=== PATIENT | female | born 1995 | race African-American/Black ===

== ENCOUNTER 2016-12-23 11:33 | Inpatient (IN) | payer OTHER, MEDICAID ==
[~2016-12-23] VITALS: Ht 162.6 cm; Wt 77.5 kg
--- NOTE | 2016-12-23 11:48 | PD ---
HPI Chief Complaint: Psychiatric Symptoms Time Seen by Provider: 11:40 Travel History International Travel<30 days: No Contact w/Intl Traveler<30days: No History of Present Illness HPI 21-year-old Afro-Guyanese female presents the emergency department under police escort after being Bliss acted for attempted suicide. Patient reports she had a friend's gun and she pointed at her head and pulled the trigger at approximately 1 AM this morning. She states the gun jammed. Patient continues to feel suicidal. She denies any medical issues or medications. She denies alcohol or drug use. Last menstrual period was the 14th of last month. Patient has no known drug allergies. PFSH Social History Alcohol Use: No Tobacco Use: No Substance Use: No Review of Systems Except as stated in HPI: all other systems reviewed are Neg General / Constitutional: No: Fever Eyes: No: Visual changes HENT: No: Headaches Cardiovascular: No: Chest Pain or Discomfort Respiratory: No: Shortness of Breath Gastrointestinal: No: Abdominal Pain Genitourinary: No: Dysuria Musculoskeletal: No: Pain Skin: No Rash Neurologic: No: Weakness Psychiatric: Positive: Depression, Suicidal Ideations, No: Anxiety, Disorder of Thought, Mood Disorder, Substance Abuse, Homicidal Ideation Endocrine: No: Polydipsia Hematologic/Lymphatic: No: Easy Bruising Physical Exam Narrative GENERAL: Patient appears in no acute distress. SKIN: Warm and dry. Normal color. Normal turgor. No signs of trauma. HEAD: Atraumatic. Normocephalic. EYES: Pupils equal and round. No scleral icterus. No injection or drainage. ENT: No nasal bleeding or discharge. Mucous membranes pink and moist. Pharynx is clear. Airway is patent NECK: Trachea midline. Supple nontender. CARDIOVASCULAR: Regular rate and rhythm. RESPIRATORY: No accessory muscle use. Clear to auscultation. Breath sounds equal bilaterally. MUSCULOSKELETAL: Extremities without clubbing, cyanosis, or edema. No obvious deformities. NEUROLOGICAL: Awake and alert. No obvious cranial nerve deficits. Motor grossly within normal limits. Five out of 5 muscle strength in the arms and legs. Normal speech. PSYCHIATRIC: Appropriate mood and affect; insight and judgment normal. MDM Medical Decision Making Medical Screen Exam Complete: Yes Emergency Medical Condition: Yes Differential Diagnosis With suicidal attempt. Suicidal ideation. Bliss act. Narrative Course Psychiatric labs ordered per protocol. Urinalysis and urine is ordered. Patient is medically cleared for psychiatric evaluation. Diagnosis Primary Impression: Depression with suicidal ideation Additional Impression: Medical clearance for psychiatric admission Condition: Stable Toby Wilson Dec 23, 2016 11:48
[2016-12-23 12:00] VITALS: BP 122/77; PULSE 75; RESP 20; TEMP 98.2; O2SAT 99
[2016-12-23 12:10] LABS: AUTOMATED NEUTROPHIL # 2.7 TH/MM3 (1.8-7.7); BASOPHIL % 0.4 % (0.0-2.0); EOSINOPHIL % 0.4 % (0.0-4.0); HEMATOCRIT 39.8 % (35.0-46.0); HEMOGLOBIN 13.2 GM/DL (11.6-15.3); LYMPH % 42.2 % (9.0-44.0); LYMPHOCYTE # 2.3 TH/MM3 (1.0-4.8); MEAN CELL VOLUME 89.4 FL (80.0-100.0); MEAN CORPUSCULAR HEMOGLOBIN 29.7 PG (27.0-34.0); MEAN CORPUSCULAR HGB CONC 33.2 % (32.0-36.0); MEAN PLATELET VOLUME 8.7 FL (7.0-11.0); MONO % 6.7 % (0.0-8.0); MONOCYTE # 0.4 TH/MM3 (0-0.9); NEUT % 50.3 % (16.0-70.0); PLATELET COUNT 251 TH/MM3 (150-450); RED BLOOD COUNT 4.45 MIL/MM3 (4.00-5.30); RED CELL DISTRIBUTION WIDTH 14.4 % (11.6-17.2); WHITE BLOOD COUNT 5.5 TH/MM3 (4.0-11.0)
[2016-12-23 12:31] LABS: ALBUMIN 4.2 GM/DL (3.4-5.0); ALT (GPT) 20 U/L (9-42); AST (GOT) 15 U/L (16-38); BICARBONATE 26.5 MEQ/L (21.0-32.0); BLOOD UREA NITROGEN 7 MG/DL (7-18); CALCIUM 8.8 MG/DL (8.5-10.1); CHLORIDE 106 MEQ/L (98-107); CREATININE 0.84 MG/DL (0.50-1.00); GLOMERULAR FILTRATION RATE 105 ML/MIN (>89); GLUCOSE,RANDOM 86 MG/DL (74-106); SODIUM (NA) 138 MEQ/L (136-145)
[2016-12-23 12:33] LABS: ALKALINE PHOSPHATASE 97 U/L (45-117); TOTAL BILIRUBIN ADULT 0.4 MG/DL (0.2-1.0); TOTAL PROTEIN 7.9 GM/DL (6.4-8.2)
[2016-12-23 12:39] LABS: BACTERIA, URINE MOD /hpf; BILIRUBIN, URINE NEG (NEG); BLOOD, URINE LARGE (NEG); GLUCOSE,URINE NEG (NEG); KETONE, URINE NEG (NEG); MUCUS URINE MANY /lpf (OCC); NITRITE,URINE NEG (NEG); PH, URINE 5.5 (5.0-8.5); SQUAMOUS EPITHELIAL CELL URINE 25 /hpf (0-5); URINE COLOR YELLOW (YELLW/STRAW); URINE LEUKOCYTE ESTERASE TRACE (NEG)
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
[2016-12-23] MEDS ORDERED: MAGNESIUM HYDROXIDE SUSP 30 ML CUP PO PRN (14:30)
[2016-12-23] MEDS ORDERED: ALUMINUM/MAGNESIUM/SIMETH 30 ML CUP PO PRN (14:30)
[2016-12-23] MEDS: CEPHALEXIN MONOHYDRATE 500 MG CAP PO SCH ×2 (15:23→23:09)
[2016-12-23 16:32] VITALS: BP 121/75; PULSE 70; RESP 18; TEMP 97.4; O2SAT 100
[2016-12-23] MEDS ORDERED: LORazepam 2 MG TAB PO PRN (17:15)
[2016-12-23] MEDS ORDERED: LORazepam 2 MG/ML VIAL IV PUSH PRN ×4 (17:15)
[2016-12-23] MEDS ORDERED: LORazepam 1 MG TAB PO PRN (17:15)
[2016-12-23] MEDS ORDERED: FLUMAZENIL 0.5 MG/5 ML VIAL IV PUSH PRN (17:15)
[2016-12-23] MEDS: ACETAMINOPHEN 325 MG TAB PO PRN (21:16)
[2016-12-24] MEDS: CEPHALEXIN MONOHYDRATE 500 MG CAP PO SCH ×3 (06:20→21:15)
[2016-12-24 06:39] VITALS: BP 109/60; PULSE 78; RESP 17; TEMP 97.9; O2SAT 98
[2016-12-24 12:00] LABS: BICARBONATE 21.9 MEQ/L (21.0-32.0); BLOOD UREA NITROGEN 8 MG/DL (7-18); CALCIUM 9.1 MG/DL (8.5-10.1); CHLORIDE 106 MEQ/L (98-107); CREATININE 0.82 MG/DL (0.50-1.00); GLOMERULAR FILTRATION RATE 108 ML/MIN (>89); GLUCOSE,RANDOM 89 MG/DL (74-106); SODIUM (NA) 138 MEQ/L (136-145)
[2016-12-24 12:01] LABS: CHOLESTEROL 158 MG/DL (120-200); TRIGLYCERIDES 117 MG/DL (42-150)
[2016-12-24 12:03] LABS: CHOLESTEROL/ HDL RATIO 3.16 RATIO; HDL CHOLESTEROL 49.9 MG/DL (40.0-60.0); LDL CHOLESTEROL 85 MG/DL (0-99)
[2016-12-24] MEDS: SERTRALINE HCL 50 MG TAB PO SCH (15:00)
[2016-12-24 16:30] LABS: HEMOGLOBIN A1C 5.7 % (4.3-6.0)
[2016-12-24 17:35] VITALS: BP 108/69; PULSE 72; RESP 16; TEMP 98.2; O2SAT 100
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
[2016-12-24] MEDS: diphenhydrAMINE HCL 50 MG CAP PO PRN (21:24)
[2016-12-25] MEDS: CEPHALEXIN MONOHYDRATE 500 MG CAP PO SCH ×3 (06:11→21:03)
[2016-12-25 06:36] VITALS: BP 110/64; PULSE 73; RESP 16; TEMP 97.7; O2SAT 99
[2016-12-25] MEDS: SERTRALINE HCL 50 MG TAB PO SCH (09:21)
--- NOTE | 2016-12-25 14:30 | HHI.PYPN ---
Subjective Chief Complaint: Recent suicide attempt with firearm Remarks Patient seen for follow, chart reviewed. Patient found in the room on the phone but was able to interact with interview today. Patient states that she is feeling "very happy" as she had recently spoken to her family and was able to reconnect with her father who she had not spoken to in over a year states that they were both able to exchange endearing worse each other and feels supported by them at this time. Patient states that she misses her family in has plans to return back to her parents home upon discharge for support. Patient has sister living here in [facility] which has been in contact with her since her admission patient states that she has not revealed to them reasons her hospitalization but plans on doing so and person. Patient reports having slept well last night reports slight headache after taking medications but will continue medications to see if that resolves. Patient denies any suicide ideations at this time. Review of Systems Except as stated in HPI: all other systems reviewed are Neg Mental Status Examination Appearance: Appropriate Consciousness: Alert Orientation: x4 Motor Activity: Normal gait Speech: Unremarkable Language: Adequate Fund of Knowledge: Adequate Attention and Concentration: Adequate Memory: Unremarkable Mood: Sad Affect: Sad (less so today), Other (crying at times) Thought Process & Associations: Intact, Linear Thought Content: Appropriate Hallucination Type: None Delusion Type: None Suicidal Ideation: No Suicidal Plan: No Suicidal Intention: No Homicidal Ideation: No Homicidal Plan: No Homicidal Intention: No Insight: Fair Judgment: Impulsive Results Labs Date/Time Source Procedure Growth Status 12/23/16 11:52 Urine Random Urine Urine Culture - Final 50-100,000 CFU/ML MIXED ANIA... Complete Vitals/IOs Vital Signs Date Time Temp Pulse Resp B/P (MAP) Pulse Ox O2 Delivery O2 Flow Rate FiO2 12/25/16 06:36 97.7 73 16 110/64 (79) 99 Assessment & Plan Problem List: (1) Major depressive disorder, single episode, severe without psychotic features ICD Codes: F32.2 - Major depressive disorder, single episode, severe without psychotic features (2) Post traumatic stress disorder ICD Codes: F43.10 - Post-traumatic stress disorder, unspecified Status: Acute Assessment & Plan Patient reports to be responding to current treatment although she has only had one dose. We'll continue current treatment. Supportive psychotherapy provided. Discharge planning in progress Justification for Cont. Inpt. At risk for further decompensation if at lower level of care Discharge Planning Patient plans on returning back to her parent's residence upon discharge Alexys Ellsworth MD Dec 25, 2016 14:30
[2016-12-25] MEDS: LORazepam 0.5 MG TAB PO PRN (14:43)
[2016-12-25 15:59] VITALS: BP 114/72; PULSE 69; RESP 16; TEMP 97.1; O2SAT 98
[2016-12-25] MEDS: diphenhydrAMINE HCL 50 MG CAP PO PRN (21:03)
[2016-12-26 05:24] VITALS: BP 109/66; PULSE 74; RESP 16; TEMP 98
[2016-12-26] MEDS: CEPHALEXIN MONOHYDRATE 500 MG CAP PO SCH ×3 (06:00→21:13)
[2016-12-26] MEDS: SERTRALINE HCL 50 MG TAB PO SCH (08:44)
--- NOTE | 2016-12-26 15:41 | HHI.PYPN ---
Subjective Chief Complaint: Recent suicide attempt with firearm Remarks Patient seen for follow-up, chart review. Discussion with nursing staff stated the patient slept well last evening, continues to feel depressed and recent use of her grandfather likely depressed lately over the weekend. Patient was found in her room working on [employer], calm and cooperative today. Patient states that she is "trying to be okay" and mentions that she spoke to her mother recently and told her that her grandfather is going to pass away. Patient states that she did not sleep last night due to being afraid of waking up to the news that he had passed. She states that her mother currently is with her grandfather and will likely touch base with her this afternoon. Patient reports not having eaten dinner yesterday due to recent news and decreased appetite. Patient reports her mood as being "annoying" and states that she can't do anything about her grandfather in his current physical state. Patient is time continues to feel depressed, denies any suicidal ideations today. Review of Systems Except as stated in HPI: all other systems reviewed are Neg Mental Status Examination Appearance: Appropriate Consciousness: Alert Orientation: x4 Motor Activity: Normal gait Speech: Unremarkable Language: Adequate Fund of Knowledge: Adequate Attention and Concentration: Adequate Memory: Unremarkable Mood: Sad Affect: Sad, Other (tearful at times) Thought Process & Associations: Intact, Linear Thought Content: Appropriate Hallucination Type: None Delusion Type: None Suicidal Ideation: No Suicidal Plan: No Suicidal Intention: No Homicidal Ideation: No Homicidal Plan: No Homicidal Intention: No Insight: Fair Judgment: Impulsive Results Labs Date/Time Source Procedure Growth Status 12/23/16 11:52 Urine Random Urine Urine Culture - Final 50-100,000 CFU/ML MIXED ANIA... Complete Vitals/IOs Vital Signs Date Time Temp Pulse Resp B/P (MAP) Pulse Ox O2 Delivery O2 Flow Rate FiO2 12/26/16 05:24 98.0 74 16 109/66 (80) 12/25/16 15:59 98 Assessment & Plan Problem List: (1) Major depressive disorder, single episode, severe without psychotic features ICD Codes: F32.2 - Major depressive disorder, single episode, severe without psychotic features (2) Post traumatic stress disorder ICD Codes: F43.10 - Post-traumatic stress disorder, unspecified Status: Acute Assessment & Plan Patient at this time continues to feel depressed, denies any SI today, noted to be very tearful due to recent news of her grandfather being very ill and likely to pass away over the weekend. Discontinue diphenhydramine, start trazodone 50 mg by mouth at bedtime for sleep disturbance, continue rest of medications. Supportive psychotherapy provided. Discharge planning in progress Justification for Cont. Inpt. At risk for further decompensation if at lower level of care Discharge Planning Patient likely to be discharged with her sister once psychiatrically stable. Alexys Ellsworth MD Dec 26, 2016 15:41
[2016-12-26] MEDS: LORazepam 0.5 MG TAB PO PRN ×2 (15:46→22:24)
[2016-12-26] MEDS: ACETAMINOPHEN 325 MG TAB PO PRN (15:47)
[2016-12-26] MEDS: traZODone HCL 50 MG TAB PO SCH (21:07)
[2016-12-27 05:55] VITALS: BP 118/64; PULSE 76; RESP 16; TEMP 98.2; O2SAT 98
[2016-12-27] MEDS: CEPHALEXIN MONOHYDRATE 500 MG CAP PO SCH ×3 (06:00→13:00)
[2016-12-27] MEDS: SERTRALINE HCL 50 MG TAB PO SCH (10:05)
[2016-12-27] MEDS: ACETAMINOPHEN 325 MG TAB PO PRN (12:50)
--- NOTE | 2016-12-27 15:07 | HHI.PYPN ---
Subjective Chief Complaint: Recent suicide attempt with firearm Remarks Pt seen and discussed with staff. She has been tearful and crying and labile. She was laying on floor crying earlier today. Pt states that depression is better but affect is significantly dysphoric. She denies SI/HI. She is compliant with medications and denies side effects. Mental Status Examination Appearance: Appropriate Consciousness: Alert Orientation: x4 Motor Activity: Normal gait Speech: Unremarkable Language: Adequate Fund of Knowledge: Adequate Attention and Concentration: Adequate Memory: Unremarkable Mood: Sad Affect: Sad, Other (tearful at times) Thought Process & Associations: Intact, Linear Thought Content: Appropriate Hallucination Type: None Delusion Type: None Suicidal Ideation: No Suicidal Plan: No Suicidal Intention: No Homicidal Ideation: No Homicidal Plan: No Homicidal Intention: No Insight: Fair Judgment: Impulsive Results Labs Date/Time Source Procedure Growth Status 12/23/16 11:52 Urine Random Urine Urine Culture - Final 50-100,000 CFU/ML MIXED ANIA... Complete Vitals/IOs Vital Signs Date Time Temp Pulse Resp B/P (MAP) Pulse Ox O2 Delivery O2 Flow Rate FiO2 12/27/16 05:55 98.2 76 16 118/64 (82) 98 Assessment & Plan Problem List: (1) Major depressive disorder, single episode, severe without psychotic features ICD Codes: F32.2 - Major depressive disorder, single episode, severe without psychotic features (2) Post traumatic stress disorder ICD Codes: F43.10 - Post-traumatic stress disorder, unspecified Status: Acute Assessment & Plan Continue current tx plan. Estimated LOS: days Justification for Cont. Inpt. monitoring for safety Cassandra Naylor MD Dec 27, 2016 15:07
--- NOTE | 2016-12-27 15:10 | PD.CONS ---
HPI Service [facility] Consult Requested By Dr. Ellsworth Reason for Consult burning in both the vaginal area and rectal area. Primary Care Physician No Primary Care Physician Diagnoses: History of Present Illness This is a 21-year-old medical history complaining of burning in vulvovaginal and rectal area. She stated that this occurred about 24 hours ago abruptly. Deny any vaginal discharge. Patient stated that she is sexually active no history of STDs. Deny any urinary symptoms such as burning urination, urinating more often, urinating more often at night. Patient was put on Keflex treated empirically due to bacteriuria spite being asymptomatic. She did refuse her dose today. He can also stated that she felt bumps in the area. She stated that she had never had this type of feeling before and this is the first time she had these symptoms. Her nurse is at the bedside during the interview. Otherwise she has no other complaints. Patient also stated that she is very upset because she complained about this earlier and that she was not seen soon enough for this. All other review of system reviewed and negative. Past Family Social History Allergies: Coded Allergies: No Known Allergies (Unverified , 12/23/16) Past Medical History Denies any past medical history. Past Surgical History Denies any past surgical history. Reported Medications Reported Meds & Active Scripts Active No Active Prescriptions or Reported Medications Active Ordered Medications Current Medications Acetaminophen (Tylenol) 650 mg Q4H PRN PO Pain 1-5 or Temp >101F Last administered on 12/27/16 12:50; Start 12/23/16 at 14:30 Magnesium Hydroxide (Milk Of Magnesia Liq) 30 ml DAILY PRN PO CONSTIPATION; Start 12/23/16 at 14:30 Al Hydrox/Mg Hydrox/Simethicone (Mag-Al Plus Susp Liq) 30 ml Q6H PRN PO DYSPEPSIA; Start 12/23/16 at 14:30 Cephalexin Monohydrate (Keflex) 500 mg Q8HR PO Last administered on 12/26/16 14:15; Start 12/23/16 at 14:45; Stop 12/27/16 at 14:50; Status DC Lorazepam (Ativan) 1 mg Q4H PRN PO CIWA 8-10; Start 12/23/16 at 17:15 Lorazepam (Ativan Inj) 1 mg Q4H PRN IV PUSH CIWA 8-10; Start 12/23/16 at 17:15 Lorazepam (Ativan) 2 mg Q2H PRN PO CIWA 11-14; Start 12/23/16 at 17:15 Lorazepam (Ativan Inj) 2 mg Q2H PRN IV PUSH CIWA 11-14; Start 12/23/16 at 17: 15 Lorazepam (Ativan Inj) 2 mg Q1H PRN IV PUSH CIWA 15-20; Start 12/23/16 at 17: 15 Lorazepam (Ativan Inj) 2 mg Q15M PRN IV PUSH CIWA > 20; Start 12/23/16 at 17: 15 Flumazenil (Romazicon Inj) 0.2 mg Q1M PRN IV PUSH SEE LABEL COMMENTS; Start at 17:15 Sertraline HCl (Zoloft) 50 mg DAILY PO Last administered on 12/27/16 10:05; Start 12/24/16 at 15:00 Lorazepam (Ativan) 0.5 mg Q8H PRN PO MOD - SEVERE ANXIETY/AGITATION Last administered on 12/26/16 22:24; Start 12/24/16 at 13:30 Diphenhydramine HCl (Benadryl) 50 mg HS PRN PO INSOMNIA Last administered on 21:03; Start 12/24/16 at 13:30; Stop 12/26/16 at 11:07; Status DC Trazodone HCl (Desyrel) 50 mg HS PO Last administered on 12/26/16 21:07; Start 12/26/16 at 21:00 Family History Family history reviewed all negative. Social History Patient denies any tobacco or illicit drug use. She stated that she used to drink alcohol excessively and stopped one week ago. She would not quantify the amount to me. Physical Exam Vital Signs Vital Signs Date Time Temp Pulse Resp B/P (MAP) Pulse Ox O2 Delivery O2 Flow Rate FiO2 12/27/16 05:55 98.2 76 16 118/64 (82) 98 Physical Exam GENERAL: This is a well-nourished, well-developed patient, in no apparent distress until I woke patient up then she was moving her body like she was uncomfortable. SKIN: No rashes, ecchymoses or lesions. Cool and dry. HEAD: Atraumatic. Normocephalic. No temporal or scalp tenderness. EYES: Pupils equal round and reactive. Extraocular motions intact. No scleral icterus. No injection or drainage. ENT: Nose without bleeding, purulent drainage or septal hematoma. Throat without erythema, tonsillar hypertrophy or exudate. Uvula midline. Airway patent. NECK: Trachea midline. No JVD or lymphadenopathy. Supple, nontender, no meningeal signs. CARDIOVASCULAR: Regular rate and rhythm without murmurs, gallops, or rubs. RESPIRATORY: Clear to auscultation. Breath sounds equal bilaterally. No wheezes , rales, or rhonchi. GASTROINTESTINAL: Abdomen soft, non-tender, nondistended. No hepato-splenomegaly , or palpable masses. No guarding. MUSCULOSKELETAL: Extremities without clubbing, cyanosis, or edema. No joint tenderness, effusion, or edema noted. No calf tenderness. Negative Homans sign bilaterally. NEUROLOGICAL: Awake and alert. Cranial nerves II through XII intact. Motor and sensory grossly within normal limits. Five out of 5 muscle strength in all muscle groups. Normal speech. Pelvic exam: No lesions noted in the vulvar vaginal area or the rectal area. No discharge noted. No polyps or lesions noted either. When I palpated the area she stated that was the area where she felt the burning sensation. Laboratory Date/Time Source Procedure Growth Status 12/23/16 11:52 Urine Random Urine Urine Culture - Final 50-100,000 CFU/ML MIXED ANIA... Complete Result Diagram: 12/23/16 1152 12/24/16 1020 Assessment and Plan Assessment and Plan 21-year-old female who presented with depression Depression/PTSD -Being managed by psychiatrist. vulvovaginal/rectal discomfort -Exam was normal. Urine cultures negative. -If this is anything most likely is probably due to yeast infection since this is a typical location for yeast infection especially after being on Keflex and symptoms occurring after taking Keflex. -Will give a dose of Diflucan and also betamethasone/clotrimazole cream to see if symptoms improve. -Since urine cultures are negative and patient never had urinary symptoms will discontinue Keflex. -Will follow patient until symptoms improve or resolve. Discussed with patient's nurse. She was also present during the entire interview and examination. Discussed Condition With Patient and her nurse. Coty Guaman MD Dec 27, 2016 15:10
[2016-12-27] MEDS ORDERED: FLUCONAZOLE 100 MG TAB PO ONE (16:00)
[2016-12-27] MEDS: BETAMETHASONE/CLOTRIMAZOLE CREAM 15 GM TOPICAL SCH ×2 (16:38→21:00)
[2016-12-27 18:18] VITALS: BP 125/63; PULSE 77; RESP 18; TEMP 98.6; O2SAT 97
[2016-12-27] MEDS: traZODone HCL 50 MG TAB PO SCH (21:06)
[2016-12-28 06:00] VITALS: BP 84/51; PULSE 68; RESP 16; TEMP 98; O2SAT 100
[2016-12-28] MEDS: BETAMETHASONE/CLOTRIMAZOLE CREAM 15 GM TOPICAL SCH ×2 (08:41→21:06)
[2016-12-28] MEDS: SERTRALINE HCL 50 MG TAB PO SCH (08:41)
--- NOTE | 2016-12-28 13:43 | HHI.PR ---
Subjective Remarks f/u for vulvavaginitis Patient stated that symptoms improved drastically. She stated that she only has a little itchiness in the area. Patient also stated that she had a little discharge described as white very little. Otherwise she has no complaints. Objective Vitals Vital Signs Date Time Temp Pulse Resp B/P (MAP) Pulse Ox O2 Delivery O2 Flow Rate FiO2 12/28/16 06:00 98.0 68 16 84/51 (62) 100 12/27/16 18:18 98.6 77 18 125/63 (83) 97 Result Diagram: 12/24/16 1020 Objective Remarks GENERAL: in NAD CARDIOVASCULAR: Regular rate and rhythm without murmurs, gallops, or rubs. RESPIRATORY: Breath sounds equal bilaterally. No accessory muscle use. GASTROINTESTINAL: Abdomen soft, non-tender, nondistended. Medications and IVs Current Medications Acetaminophen (Tylenol) 650 mg Q4H PRN PO Pain 1-5 or Temp >101F Last administered on 12/27/16 12:50; Start 12/23/16 at 14:30 Magnesium Hydroxide (Milk Of Magnesia Liq) 30 ml DAILY PRN PO CONSTIPATION; Start 12/23/16 at 14:30 Al Hydrox/Mg Hydrox/Simethicone (Mag-Al Plus Susp Liq) 30 ml Q6H PRN PO DYSPEPSIA; Start 12/23/16 at 14:30 Cephalexin Monohydrate (Keflex) 500 mg Q8HR PO Last administered on 12/26/16 14:15; Start 12/23/16 at 14:45; Stop 12/27/16 at 14:50; Status DC Lorazepam (Ativan) 1 mg Q4H PRN PO CIWA 8-10; Start 12/23/16 at 17:15 Lorazepam (Ativan Inj) 1 mg Q4H PRN IV PUSH CIWA 8-10; Start 12/23/16 at 17:15 Lorazepam (Ativan) 2 mg Q2H PRN PO CIWA 11-14; Start 12/23/16 at 17:15 Lorazepam (Ativan Inj) 2 mg Q2H PRN IV PUSH CIWA 11-14; Start 12/23/16 at 17: 15 Lorazepam (Ativan Inj) 2 mg Q1H PRN IV PUSH CIWA 15-20; Start 10/31/17 at 17: 15 Lorazepam (Ativan Inj) 2 mg Q15M PRN IV PUSH CIWA > 20; Start 12/23/16 at 17: 15 Flumazenil (Romazicon Inj) 0.2 mg Q1M PRN IV PUSH SEE LABEL COMMENTS; Start at 17:15 Sertraline HCl (Zoloft) 50 mg DAILY PO Last administered on 12/28/16 08:41; Start 12/24/16 at 15:00 Lorazepam (Ativan) 0.5 mg Q8H PRN PO MOD - SEVERE ANXIETY/AGITATION Last administered on 12/26/16 22:24; Start 12/24/16 at 13:30 Diphenhydramine HCl (Benadryl) 50 mg HS PRN PO INSOMNIA Last administered on 21:03; Start 12/24/16 at 13:30; Stop 12/26/16 at 11:07; Status DC Trazodone HCl (Desyrel) 50 mg HS PO Last administered on 12/27/16 21:06; Start 12/26/16 at 21:00 Fluconazole (Diflucan) 150 mg ONCE ONCE PO Last administered on 12/27/16 16: 38; Start 12/27/16 at 16:00; Stop 12/27/16 at 16:01; Status DC Betamethasone/ Clotrimazole (Lotrisone Cream) 1 applic Q12HR TOPICAL Last administered on 12/28/16 08:41; Start 12/27/16 at 16:00 A/P Assessment and Plan 21-year-old female who presented with depression Depression/PTSD -Being managed by psychiatrist. vulvovaginal/rectal discomfort -Drastic improvement in symptoms. -Exam was normal. Urine cultures negative. -If this is anything most likely is probably due to yeast infection since this is a typical location for yeast infection especially after being on Keflex and symptoms occurring after taking Keflex. -Since urine cultures are negative and patient never had urinary symptoms will discontinue Keflex. -Status post 1 dose of Diflucan given with drastic improvement in symptoms. Continue with betamethasone/clotrimazole cream when necessary. -Patient has very minimal vaginal discharge but stated that she would like to be checked for GC and chlamydia. Will check GC and chlamydia and for BV. Most likely discharged from yeast infection. Patient's nurse is present during the interview. Coty Guaman MD Dec 28, 2016 13:43
--- NOTE | 2016-12-28 14:39 | HHI.PYPN ---
Subjective Chief Complaint: Recent suicide attempt with firearm Remarks Pt seen and discussed with staff. Mood is improved and she has been less tearful and labile. .She has been out on unit, participating in activities. SHe reports that depression has lessened and she is feeling more hopeful about future. Pt states that she will see therapist via [facility] upon discharge but will need to find physician to prescribe medications. No SI/ HI Mental Status Examination Appearance: Appropriate Consciousness: Alert Orientation: x4 Motor Activity: Normal gait Speech: Unremarkable Language: Adequate Fund of Knowledge: Adequate Attention and Concentration: Adequate Memory: Unremarkable Mood: Sad Affect: Appropriate, Other (more reactive and full today) Thought Process & Associations: Intact, Linear Thought Content: Appropriate Hallucination Type: None Delusion Type: None Suicidal Ideation: No Suicidal Plan: No Suicidal Intention: No Homicidal Ideation: No Homicidal Plan: No Homicidal Intention: No Insight: Fair Judgment: Impulsive Results Labs Date/Time Source Procedure Growth Status 12/23/16 11:52 Urine Random Urine Urine Culture - Final 50-100,000 CFU/ML MIXED ANIA... Complete Vitals/IOs Vital Signs Date Time Temp Pulse Resp B/P (MAP) Pulse Ox O2 Delivery O2 Flow Rate FiO2 12/28/16 06:00 98.0 68 16 84/51 (62) 100 Assessment & Plan Problem List: (1) Major depressive disorder, single episode, severe without psychotic features ICD Codes: F32.2 - Major depressive disorder, single episode, severe without psychotic features (2) Post traumatic stress disorder ICD Codes: F43.10 - Post-traumatic stress disorder, unspecified Status: Acute Assessment & Plan Pt improving. Continue current tx plan. Estimated LOS: days Justification for Cont. Inpt. monitoring for safety Cassandra Naylor MD Dec 28, 2016 14:39
[2016-12-28] MEDS: LORazepam 0.5 MG TAB PO PRN (17:08)
[2016-12-28 17:25] VITALS: BP 124/78; PULSE 78; RESP 17; TEMP 97.2; O2SAT 99
[2016-12-28] MEDS: traZODone HCL 50 MG TAB PO SCH (21:06)
[2016-12-29 06:14] VITALS: BP 94/59; PULSE 58; RESP 18; TEMP 97.8; O2SAT 98
[2016-12-29] MEDS: SERTRALINE HCL 50 MG TAB PO SCH (09:05)
[2016-12-29] MEDS: BETAMETHASONE/CLOTRIMAZOLE CREAM 15 GM TOPICAL SCH (09:05)
[2016-12-29] MEDS ORDERED: ZOLO50TA PO (10:35)
[2016-12-29] MEDS ORDERED: LOTR15T TOPICAL (10:35)
[2016-12-29] MEDS ORDERED: TRAZ50TA12 PO (10:35)
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
== END 2016-12-29 12:02 | disposition home or self-care (01) | DRG 885 ==
LOC: NEPC 11:33 → NEDA 13:56 → H260 15:19
PROVIDERS: ADMIT Student in an Organized Health Care Education/Training Program; ATTEND Student in an Organized Health Care Education/Training Program
DX: F32.2 Major depressive disorder, single episode, severe without psychotic features (principal); R45.851 Suicidal ideations; F19.94 Other psychoactive substance use, unspecified with psychoactive substance-induced mood disorder; F10.10 Alcohol abuse, uncomplicated; B37.3 Candidiasis of vulva and vagina; F43.11 Post-traumatic stress disorder, acute; G47.00 Insomnia, unspecified; F12.90 Cannabis use, unspecified, uncomplicated; F17.290 Nicotine dependence, other tobacco product, uncomplicated; Z62.810 Personal history of physical and sexual abuse in childhood; Z91.5 Personal history of self-harm
CPT/HCPCS: 80048; 80053; 80061; 80307; 81001; 83036; 84703; 85025; 87086; Q0163